=== PATIENT | female | born 1940 | race Caucasian/White ===

== ENCOUNTER 2018-03-13 13:57 | Emergency (ER) | payer MEDICARE ==
[~2018-03-13] VITALS: Ht 167.6 cm; Wt 99.8 kg
[~2018-03-13 13:57] MED LIST: ACET325 PO; ALLERCLEAR D-11 EACH PO; ALLO100 PO; AMIO200 PO; ASPI81CH PO; ATOR40TA PO; Amaryl2 MG PO; CEPH500 PO; ELIQUIS5 MG PO; FEBU40TA PO; FIBE4P PO; FISH OIL; Flonase 0.05% N16 GM; GABA300 PO; GLYB5 PO; GUAI600T33 PO; HYDR1TAB94 PO; INSDET100 SC; INSDETPEN SC; INSU100I6; INSUASPI SC; JANUMET XR 50-1 EAC1 PO; LAVAP17G PO; LEVSOD75 PO; LEVSOD88 PO; LISI20 PO; LORA.5 PO; LORA1 PO; METF500 PO; METO25 PO; METO25ER PO; MIRT15 PO; NYST100P TOP; Norco 5-325 Ta1 EACH PO; OMEP20ER PO; Omeprazole20 M1; Pravachol40 MG PO; VITAMIN D; WARF4; ZOLP5 PO; Zofran2 MG/1 ML PO
[2018-03-13 14:50] LABS: Source, Urine Catheter
[2018-03-13 15:08] LABS: Blood, Urine Neg (Neg); Glucose Qualitative, Urine Neg (Neg); Ketones, Urine 1+ (Neg); Leukocyte Esterase, Urine 1+ (Neg); Nitrite, Urine Neg (Neg); Protein, Urine 2+ (Neg); Specific Gravity, Urine 1.015 (1.003-1.022); Urobilinogen, Urine 1+ (Normal)
[2018-03-13 15:16] LABS: BASOPHILS ABSOLUTE AUTO 0.04 K/mm3 (0.00-0.23); BASOPHILS PERCENT AUTO 0 % (0-2); EOSINOPHILS ABSOLUTE AUTO 0.06 K/mm3 (0.00-0.68); EOSINOPHILS PERCENT AUTO 0 % (0-6); Hematocrit 39.9 % (33.0-51.0); Hemoglobin 12.8 g/dL (11.5-16.0); IMMATURE GRAN ABSOLUTE AUTO 0.06 K/mm3 (0.00-0.10); IMMATURE GRAN PERCENT AUTO 0 % (0-1); LYMPHOCYTES ABSOLUTE AUTO 1.37 K/mm3 (0.84-5.20); LYMPHOCYTES PERCENT AUTO 9 % (21-46); MONOCYTES ABSOLUTE AUTO 0.87 K/mm3 (0.16-1.47); MONOCYTES PERCENT AUTO 6 % (4-13); Mean Corpuscular HGB Conc 32.1 g/dL (31.5-36.5); Mean Corpuscular Volume 81 fL (80-100); Mean Platelet Volume 10.2 fL (9.1-12.4); NEUTROPHILS ABSOLUTE AUTO 12.52 K/mm3 (1.96-9.15); NEUTROPHILS PERCENT AUTO 84 % (41-73); Platelet Count 323 K/mm3 (150-400); RDW Coefficient Variation 17.7 % (11.7-14.2); RDW Standard Deviation 50.6 fL (35.1-46.3); Red Blood Cell Count 4.93 M/mm3 (3.80-5.20); White Blood Cell Count 14.92 K/mm3 (4.00-11.30)
[2018-03-13 15:22] LABS: Appearance, Urine Clear (Clear); Bilirubin, Urine 1+ (Neg); Color, Urine Yellow (P-Yellow)
[2018-03-13 15:23] LABS: Bacteria Few /hpf; Red Blood Cells, Urine 0-2 /hpf (0-2); Squamous Epithelial Cells Few /hpf (Few)
[2018-03-13 15:37] LABS: Alanine Aminotransfer (ALT/SGP 85 U/L (12-78); Albumin/Globulin Ratio 0.4 (0.8-1.8); Alk Phos 196 U/L (50-136); Anion Gap 8 mmol/L (6-16); Aspartate Aminotrans (AST/SGOT 176 U/L (12-37); Bilirubin, Total 0.5 mg/dL (0.1-1.0); Blood Urea Nitrogen 18 mg/dL (8-24); Bun/Creatinine Ratio 19.7 (12.0-20.0); CO2, Blood 25 mmol/L (21-32); Calcium, Blood 8.4 mg/dL (8.5-10.1); Chloride, Blood 107 mmol/L (98-108); Creatinine, Blood 0.91 mg/dL (0.40-1.00); Globulin, Blood 5.4 g/dL (2.2-4.0); Glomerular Filtration Rate >60 (60-); Glucose, Blood 74 mg/dL (70-99); Potassium, Blood 3.2 mmol/L (3.5-5.5); Sodium, Blood 140 mmol/L (136-145); Total Protein, Blood 7.4 g/dL (6.4-8.2)
[2018-03-13 15:39] LABS: Troponin I <0.015 ng/mL (0.000-0.040)
[2018-03-13] MEDS ORDERED: K-Dur20 MEQ PO (17:36)
== END 2018-03-13 18:57 | disposition home or self-care (01) ==
LOC: ER 13:57
PROVIDERS: Nurse Practitioner Family
DX: S70.01XA Contusion of right hip, initial encounter (principal); S30.811A Abrasion of abdominal wall, initial encounter; R53.1 Weakness; Z79.899 Other long term (current) drug therapy; Z79.4 Long term (current) use of insulin; E11.9 Type 2 diabetes mellitus without complications; E03.9 Hypothyroidism, unspecified; F41.9 Anxiety disorder, unspecified; Z87.891 Personal history of nicotine dependence; W06.XXXA Fall from bed, initial encounter
CPT/HCPCS: 36415; 51701; 51702; 80053; 81001; 82947; 84484; 85025; 93005; 93010; 99284